=== PATIENT | male | born 1990 | race Caucasian/White ===

== ENCOUNTER 2017-03-25 11:23 | Inpatient (IN) | payer OTHER ==
[~2017-03-25] VITALS: Ht 182.9 cm; Wt 114.4 kg
[2017-03-25] MEDS ORDERED: RANI300C PO (11:55)
[2017-03-25] MEDS ORDERED: LITH300C PO (11:55)
[2017-03-25] MEDS ORDERED: LYRI150C PO (11:55)
[2017-03-25] MEDS ORDERED: KLON2TAB PO (11:55)
[2017-03-25] MEDS ORDERED: DULO30CA PO (11:55)
[2017-03-25] MEDS ORDERED: NICOTINE 21MG/24HR 1 EA TRANSDERMAL TD ONE (13:00)
[2017-03-25] MEDS ORDERED: DULO1CAP3 PO (13:20)
[2017-03-25] MEDS ORDERED: ALBU17IN INH (13:20)
[2017-03-25] MEDS ORDERED: LORATAB PO (13:20)
[2017-03-25] MEDS ORDERED: OMEP40CA2 PO (13:20)
[2017-03-25] MEDS ORDERED: DULE100A IN (13:20)
[2017-03-25] MEDS ORDERED: LITH45TASA PO (13:20)
[2017-03-25] MEDS: FAMOTIDINE 20 MG TAB PO SCH (21:00)
[2017-03-25] MEDS ORDERED: LITHIUM CARBONATE 450 MG **CR** TAB PO SCH (21:00)
[2017-03-25 22:25] VITALS: BP 143/89
[2017-03-25] MEDS ORDERED: ALBUTEROL 90 MCG/ACT 8GM HFA INHALER INH PRN (22:45)
[2017-03-26] MEDS ORDERED: MOM 30ML SUSPENSION UDC PO PRN
[2017-03-26] MEDS ORDERED: OXAZEPAM 15 MG CAP PO PRN
[2017-03-26] MEDS ORDERED: MAALOX 30 ML SUSP *UDC PO PRN
[2017-03-26] MEDS ORDERED: NICOTINE 21MG/24HR 1 EA TRANSDERMAL TD SCH (09:00)
[2017-03-26] MEDS: OLANZapine ORAL DISINTEGRATING TAB 5MG PO PRN (11:27)
[2017-03-26] MEDS: OMEPRAZOLE 20 MG CAP PO SCH (11:28)
[2017-03-26] MEDS: FAMOTIDINE 20 MG TAB PO SCH ×2 (11:29→20:11)
[2017-03-26] MEDS: LORATADINE 10 MG TAB PO SCH (11:29)
[2017-03-26] MEDS: NICOTINE 21MG/24HR 1 EA TRANSDERMAL TD SCH (11:29)
[2017-03-26] MEDS: PREGABALIN 75 MG CAP(LYRICA) PO SCH ×3 (11:29→20:10)
[2017-03-26] MEDS: SYMBICORT 160/4.5MCG INHALER 6GM INH SCH ×2 (11:29→21:04)
[2017-03-26 18:00] VITALS: BP 132/65
[2017-03-26] MEDS: LITHIUM CARBONATE 450 MG **CR** TAB PO SCH (20:11)
[2017-03-26] MEDS: ACETAMINOPHEN TAB 650MG DOSE (2X325MG) PO PRN (20:12)
[2017-03-26] MEDS ORDERED: LITHIUM CARBONATE 300 MG CAP PO SCH (21:00)
[2017-03-26] MEDS ORDERED: LITHIUM CARBONATE 450 MG **CR** TAB PO SCH (21:00)
[2017-03-26] MEDS: traZODone 50 MG TAB PO PRN (21:09)
[2017-03-26] MEDS: hydrOXYzine 25 MG TAB PO PRN (21:09)
[2017-03-27 07:05] VITALS: BP 156/78
[2017-03-27] MEDS: NICOTINE 21MG/24HR 1 EA TRANSDERMAL TD SCH (07:34)
[2017-03-27] MEDS: SYMBICORT 160/4.5MCG INHALER 6GM INH SCH ×2 (07:34→20:08)
[2017-03-27] MEDS: PREGABALIN 75 MG CAP(LYRICA) PO SCH ×3 (07:34→20:08)
[2017-03-27] MEDS: OMEPRAZOLE 20 MG CAP PO SCH (07:34)
[2017-03-27] MEDS: FAMOTIDINE 20 MG TAB PO SCH ×2 (07:34→20:08)
[2017-03-27] MEDS: LORATADINE 10 MG TAB PO SCH (07:35)
[2017-03-27] MEDS: hydrOXYzine 25 MG TAB PO PRN (07:35)
--- NOTE | 2017-03-27 10:06 | HPE ---
DATE OF ADMISSION: 03/25/2017 CHIEF COMPLAINT: Feels depressed. SUBJECTIVE: He is 26 years old. He is . He has two children, and his is expecting their third child in August. The patient lives between [facility] with family, and they have been up here in this area camping. He says he has done that every year most of his life. He and his and children, his father, and a couple of other relatives have all come. He says they arrived about a week ago. The patient is diagnosed with bipolar disorder, received the diagnosis within the last 5 years or so, sees a psychiatrist in [place], sees him regularly, last saw him a few weeks ago, is on lithium carbonate at 900 mg at night, has been on this dose for quite a while, was started on lithium more than a year ago. Says takes his medicine regularly. He has also been on Cymbalta at 60 mg twice a day, says has been on Cymbalta longer then the lithium. He was brought in as family had become increasingly concerned regarding his behavior, he started drinking, was irritable, and this happened over the course of the last couple of days per the patient, but longer per his family. He then started taking extra Klonopin, has been on that, apparently on an as needed basis as well, and was overdosing on them when intoxicated. He expressed the desire to , and to kill himself, and at one point, asked to be "killed by a helicopter repairer". The family brought him over to the hospital, he was quite agitated and angry and upset. He says that things have been going well until the last 48 hours, when he started drinking. He feels that prior to that, he was enjoying the best camping trip that he has had. Family suggests he had been taking about killing himself at least for the past week or so. They have also been concerned that he has indicated he was going to try and take his life when he came here, and therefore he been placed on a one-on-one observation. He denies the above, suggests things have not been okay only for the last 2 days or so. Says has periods when he feels down, and that soon fluctuates into feeling elated, exceedingly irritable, very energetic, with racing thoughts, only to be followed by feeling depressed again, and this tends to fluctuate within the same day, always in a few hours or so as well. He did not describe periods of an elated mood, which have extended for more than a few days at a time. He has had mood fluctuations for the better part of his adult life, says can remember such changes in his teenage years as well. He denies that he has ever thought of taking his life when he has been sober, though I am not sure if this is entirely accurate. Says has been experiencing considerable stress, particularly after was told to evacuate the house, says has been given a month, they have been there for the last 9 years, says the [facility] wants to remodel it for his family member. In addition to this, he has a young family, and his is expecting another child. Collateral information from his also indicates that he has had similar episode when she became with their second child. They for about a year possibly, and they just got back together, says they were apart because of his difficulties with alcohol. He completed an inpatient rehabilitation earlier this year, says did well, felt okay for a couple of months, no cravings, and says he then felt that he could control it if he "just had a little" and he picked it up again. No hallucinations or delusions when either manic or depressed. Says has flashbacks of difficult childhood, but did not go into details. Says he may even get nightmares, but does not remember them. Says flashbacks have been as frequent. Also suggested occasionally intrusive thoughts about the past as well. He also says he startles easily, but is not hypervigilant. PAST PSYCHIATRIC HISTORY: No history of inpatient psychiatric hospitalizations. Apparently family suggests it has come close to it though. No history of suicide attempts. He acknowledges he thinks of suicide when depressed or irritable, but has not come close to attempting it. FAMILY PSYCHIATRIC HISTORY: Says his mother has been diagnosed with bipolar disorder, has been in treatment, and generally going well. SUBSTANCE ABUSE HISTORY: As indicated above. Has had difficulties with alcohol several years, has attended at least one rehabilitation, this was earlier this year. MEDICAL HISTORY: He is treated for fibromyalgia, apparently takes Lyrica for that. MEDICATIONS: This includes: - Lyrica 150 mg three times a day - Klonopin 2 mg daily as needed for anxiety - ranitidine 300 mg twice a day - Cymbalta 60 mg twice a day - lithium carbonate 900 mg at night These are all prior to coming to hospital. He has only received lithium while in the hospital here. It should also be noted he is on albuterol which he has used as needed. ALLERGIES: PROMETHAZINE, PAROXETINE, LEXAPRO. SOCIAL HISTORY: Raised mostly by his mother, parents split when he was young, but he did not go into details, though he alluded to a difficult childhood. He and his have been together for the past 10 years. They have two children, and another one on the way. Says works [employer], and has done well with that, suggests no difficulties at work. Has been coming here to this area for summer camping, more than 20 years. Lives between [place] and [place]. Says matters at home have been good, though I am not quite sure if that is accurate. MENTAL STATUS EXAMINATION: He is unkempt, he is sitting up in bed, he is cooperative, though somewhat guarded at times as well. There is no agitation, displays mild irritability when informed that he is expected to stay in the hospital for the next couple of days. No psychomotor retardation. He is coherent. No formal thought disorder. Affect is fairly broad, quite tearful at times. He denies any suicidal thoughts or intents at present. No homicidal ideas or intents. No fluctuation of consciousness. Does not appear to be internally preoccupied. No delusional ideations elicited. He is alert, oriented to person and place, not fully to time. He initially thought it was the 02 of April, but was reoriented. Attention and concentration are good. He is able to spell the word house forwards and backwards, can recall two out of three objects after 5 minutes, and the three out of three objects after another 5, when prompted. Intellect average. Judgment is poor, as is insight. INVESTIGATIONS: These show lithium level below 0.2. It should be noted, he was initially taken to [facility], where he was examined, medically stabilized, and then transferred here. He was deemed to be medically stable when he came here. I do not have current access to any blood work or investigations done at [facility]. ASSESSMENT: Bipolar disorder, mixed episode. Unspecified anxiety disorder. Rule out posttraumatic stress disorder. Alcohol use disorder. Alcohol intoxication. Domestic difficulties, being asked to leave their residence. The patient has had mood fluctuations, has been diagnosed with bipolar disorder, and most likely meets criteria for that, in terms of mixed episodes, with periods of maria de jesus fluctuating with those of depression all within the same day, also sometimes with a few hours. This has impacted his functioning quite considerably, it has been further complicated by his misuse of alcohol, and further clouded judgment as a result, to the point where he was overdosing on Klonopin. PLAN: He is admitted to the inpatient psychiatry unit, placed on relevant precautions, including one-on-one observations, given concerns regarding his depression, his thoughts of taking his life. He also minimizes his difficulties. We also obtained further collateral information from family, and also from his outpatient psychiatrist, in terms of records as well. He is resumed on lithium carbonate at 900 mg at night, we will resume the Lyrica as well. I would not suggest resuming the Cymbalta, or placing him on any antidepressant, as that may exacerbate mood fluctuations. He has been on lamotrigine in the past, says tolerated it well but did not find it to be effective. We will monitor him for withdrawal symptoms as well. The patient will receive a medicine consult if indicated. We will also obtain a lithium level, we will consider increasing the lithium by another 150 mg, to help stabilize his mood. The possibility of considering atypical antipsychotics as mood stabilizer, in addition to the lithium, also ought to be considered. He will be discharged with followup once he is stable. I would anticipate he will stay here for the next 5-7 days. The assessment took 60 minutes.
[2017-03-27] MEDS: ACETAMINOPHEN TAB 650MG DOSE (2X325MG) PO PRN ×2 (11:52→21:20)
[2017-03-27] MEDS: OLANZapine ORAL DISINTEGRATING TAB 5MG PO PRN (13:03)
[2017-03-27 18:00] VITALS: BP 107/74
[2017-03-27] MEDS: LITHIUM CARBONATE 150 MG CAP PO SCH (20:08)
[2017-03-27] MEDS: traZODone 50 MG TAB PO PRN (20:08)
[2017-03-27] MEDS: LITHIUM CARBONATE 450 MG **CR** TAB PO SCH (20:09)
[2017-03-28 07:14] VITALS: BP 113/54
[2017-03-28] MEDS: PREGABALIN 75 MG CAP(LYRICA) PO SCH ×3 (08:23→21:55)
[2017-03-28] MEDS: OMEPRAZOLE 20 MG CAP PO SCH (08:24)
[2017-03-28] MEDS: LORATADINE 10 MG TAB PO SCH (08:24)
[2017-03-28] MEDS: NICOTINE 21MG/24HR 1 EA TRANSDERMAL TD SCH (08:24)
[2017-03-28] MEDS: SYMBICORT 160/4.5MCG INHALER 6GM INH SCH ×2 (08:24→21:56)
[2017-03-28] MEDS: FAMOTIDINE 20 MG TAB PO SCH ×2 (08:24→21:54)
--- NOTE | 2017-03-28 08:49 | IPN ---
DATE: 03/27/2017 I did see the patient. He is currently asleep. No major agitations last night. In view of this, will continue with the current care for now, and will look at increasing the lithium.
--- NOTE | 2017-03-28 09:21 | IPN ---
DATE: 03/27/2017 I went to see the patient again. He remains asleep, is snoring, and since he has been agitated the last couple of days, I will not wake him up. Will continue with current care.
[2017-03-28] MEDS: OLANZapine ORAL DISINTEGRATING TAB 5MG PO PRN ×2 (09:22→16:10)
--- NOTE | 2017-03-28 12:52 | IPN ---
DATE OF SERVICE: 03/27/2017 CHIEF COMPLAINT: Feels better. SUBJECTIVE: He is seen for followup. He was asleep when I tried seeing him on a couple of occasions earlier today. He says he has been catching up on sleep. Feels rested. When I saw him now, he was having his dinner. Says has slept well and that moods are more even-keeled. Is less irritable, less depressed. Has not been out of the room much. Has been trying to read. Concentration has improved. He has been in contact with his family, as well. Denies any cravings for alcohol. Currently, denies any suicidal thoughts or intents. MENTAL STATUS EXAMINATION: He is neater than yesterday. Still a bit unkempt. He is cooperative. He is coherent. There is no agitation. No psychomotor retardation. No abnormal movements noted. Affect is restricted in range. He currently denies any suicidal thoughts or intents. No evidence of any thoughts of harming anyone else nor of any psychosis at present. Cognition is grossly intact. Judgment and insight remain compromised. ASSESSMENT: 1. Bipolar disorder, current episode depressed. 2. Alcohol use disorder. PLAN: Continue current care and observations, and I would suggest increasing the lithium by 150 mg at night and would obtain a lithium level in 5 days. Continue with the hydroxyzine, as well, for current anxiety. I would encourage him to participate in treatment here, and I would suggest considering discontinuing a sitter tomorrow. He will be seeing the assigned psychiatrist tomorrow and the rest of the treatment team, so discharge planning can proceed, as well. The importance of his leaving when stable is emphasized. VITAL SIGNS: Blood pressure 156/78, pulse 81, temperature 99.9.
[2017-03-28 15:11] LABS: BASO # 0.1 K/mm3 (0.0-0.2); BASO % 0.7 % (0.0-1.0); EOS # 0.2 K/mm3 (0.0-0.50); EOS % 1.6 % (0.0-3.0); LARGE UNSTAINED CELL # 0.2 K/mm3 (0.0-0.4); LYMPH % 22.8 % (24.0-44.0); MEAN CORPUSCULAR HEMOGLOBIN 29.8 pg (27.0-33.0); MEAN CORPUSCULAR HGB CONC 33.7 g/dl (32.0-36.5); MEAN CORPUSCULAR VOLUME 88.3 fl (80.0-96.0); MONO # 0.6 K/mm3 (0.0-0.8); MONO % 4.7 % (0.0-5.0); NEUTROPHILS # 8.1 K/mm3 (1.8-7.7); NEUTROPHILS % 68.2 % (36.0-66.0); PLATELET COUNT, AUTOMATED 214 k/mm3 (150-450); RED CELL DISTRIBUTION WIDTH 13.2 % (11.5-14.5); WHITE BLOOD COUNT 11.9 K/mm3 (4.0-10.0)
[2017-03-28 15:28] LABS: ALBUMIN 4.5 GM/DL (3.2-5.2); ALBUMIN/GLOBULIN RATIO 1.32 (1.00-1.93); ALKALINE PHOSPHATASE 76 U/L (45-117); ALT/SGPT 32 U/L (12-78); ANION GAP 9 MEQ/L (8-16); AST/SGOT 20 U/L (15-37); BILIRUBIN,DIRECT 0.1 MG/DL (0.0-0.2); BILIRUBIN,TOTAL 0.4 MG/DL (0.2-1.0); BLOOD UREA NITROGEN 9 MG/DL (7-18); CALCIUM LEVEL 9.6 MG/DL (8.5-10.1); CARBON DIOXIDE LEVEL 24 MEQ/L (21-32); CHLORIDE LEVEL 104 MEQ/L (98-107); CREATININE FOR GFR 1.07 MG/DL (0.70-1.30); GLOMERULAR FILTRATION RATE > 60.0 (>60); GLUCOSE, FASTING 126 MG/DL (70-105); POTASSIUM SERUM 4.1 MEQ/L (3.5-5.1); SODIUM LEVEL 137 MEQ/L (136-145); TOTAL PROTEIN 7.9 GM/DL (6.4-8.2)
[2017-03-28 18:21] VITALS: BP 128/70
[2017-03-28] MEDS: LITHIUM CARBONATE 150 MG CAP PO SCH (21:55)
[2017-03-28] MEDS: LITHIUM CARBONATE 450 MG **CR** TAB PO SCH (21:55)
[2017-03-28] MEDS: traZODone 50 MG TAB PO PRN (22:31)
[2017-03-29 06:21] VITALS: BP 156/83
--- NOTE | 2017-03-29 07:26 | HPE ---
DATE OF ADMISSION: 03/25/2017 Please refer to the psychiatric history and evaluation for further details on this admission. This examination and history is intended for medical issues which may need treatment, followup, or consult on this 26-year-old male who was transferred from the [facility] after having been stabilized from taking several Klonopin and was also threatening to staff. ALLERGIES: ESCITALOPRAM, PAROXETINE, PROMETHAZINE. PRIMARY CARE PROVIDER: Goes to health clinic at [place]. SOCIAL HISTORY: He is . Ethyl alcohol (EtOH): Frequently. Smokes one pack of cigarettes per day. Recreational drug use: Marijuana. PAST MEDICAL HISTORY: Posttraumatic stress disorder (PTSD), bipolar, fibromyalgia, asthma. PAST SURGICAL HISTORY: Back surgery, upper and lower scopes. FAMILY HISTORY: Negative. Urine positive for cannabinoids. Huson was less than 0.20. HOME MEDICATIONS: - Ventolin two puffs by mouth every 4 hours as needed for shortness of breath or wheeze - Klonopin 2 mg by mouth daily as needed - Dulera 100/5 one puff by mouth twice a day - duloxetine 60 mg by mouth twice a day - Huson ER 450 mg by mouth twice a day - loratadine 10 mg by mouth daily - omeprazole 40 mg by mouth daily - Lyrica 150 mg by mouth three times a day - Zantac 300 mg by mouth twice a day REVIEW OF SYSTEMS: Ten systems review was done. Other than chronic pain from fibromyalgia, he had no complaints. PHYSICAL EXAMINATION: 26-year-old cooperative male in no acute distress. Height 74 inches, weight 113 kg, body mass index (BMI) 33.8. Blood pressure 148/78, pulse 78, respirations 16. Pupils equal and reactive to light. Extraocular movements are intact. Cornea and sclerae clear. Conjunctivae is normal. No facial asymmetry. Pharynx, tongue, gums pink and moist. Tongue is midline. NECK: Supple without lymphadenopathy. No thyromegaly. No goiter. Carotids 2+ without bruit. CHEST: Clear to auscultation without wheeze or retraction. HEART: Regular. ABDOMEN: Benign. Bowel sounds positive. GENITOURINARY/RECTAL: Not done. EXTREMITIES: Show equal strength. Full range of motion. No cyanosis, clubbing , or edema. Peripheral pulses equal and palpable bilaterally. SKIN: Warm and dry. IMPRESSION/PLAN: 1. Psychiatric plan per psychiatry. 2. History of asthma, stable. 3. Borderline blood pressure. Will monitor. May be secondary to stress. May end up needing antihypertensive. 4. Environmental allergies. Continue loratadine. 5. Gastroesophageal reflux disease (GERD). Continue omeprazole. MTDD
[2017-03-29] MEDS: FAMOTIDINE 20 MG TAB PO SCH ×2 (08:18→21:00)
[2017-03-29] MEDS: PREGABALIN 75 MG CAP(LYRICA) PO SCH ×3 (08:18→21:00)
[2017-03-29] MEDS: SYMBICORT 160/4.5MCG INHALER 6GM INH SCH ×2 (08:18→21:01)
[2017-03-29] MEDS: LORATADINE 10 MG TAB PO SCH (08:19)
[2017-03-29] MEDS: OMEPRAZOLE 20 MG CAP PO SCH (08:19)
[2017-03-29] MEDS: NICOTINE 21MG/24HR 1 EA TRANSDERMAL TD SCH (08:20)
[2017-03-29] MEDS ORDERED: buPROPion 75 MG TAB PO SCH (09:00)
--- NOTE | 2017-03-29 09:53 | IPN ---
DATE: 03/28/2017 26-year-old male who was admitted to the inpatient mental health unit after he overdosed on six Klonopin of 2 mg while being intoxicated with alcohol. SUBJECTIVE: Patient reports he feels very sorry for having been drinking a lot of beers, approximately 12 beers per day while he was camping, at least for 2 days. He says he feels extremely sad for being away from his family and because he is not going to be able to be with his tomorrow when she will be going for an ultrasound to determine the sex of the baby that she is expecting. Patient currently denies suicidal or homicidal ideations, says he feels better with the increase in lithium that was done by Dr. Arce over the weekend. Denies cravings for alcohol. He also denies auditory or visual hallucinations and denies thought delusions. OBJECTIVE: Patient is alert and oriented times three, cooperative, pleasant, disheveled and tearful. His mood and affect are sad. His speech is linear, coherent with his thoughts. Thought process is intact, thought content is coherent, worried and sad about not being present with his at the [facility] tomorrow. Denies suicidal ideation, homicidal ideation, thought disorder, thought delusions, auditory or visual hallucinations. His memory is intact, his attention and concentration are good, his judgment and insight are slowly improving. His impulse control is fair and has been fair at the unit. ASSESSMENT: Bipolar disorder, current episode depressed. Alcohol use disorder. PLAN: Will continue to monitor closely, he will continue the same medications and if he continues to be depressed, lithium will be increased another 150 mg tomorrow. Will followup. MANUEL
--- NOTE | 2017-03-29 10:21 | ECGEPIP ---
Stationary ECG Study [facility] Test Date: 2017-03-28 Pat Name: JESSI DURAN Department: Room: [place] [address] Gender: M Sales And Marketing Administrator: ROBERTO : 1990 Requested By: MALCOM Robert Order Number: [id number] Reading MD: Prasanna Ku Measurements Intervals [place] Rate: 92 P: 42 [place]: 185 QRS: 28 QRSD: 117 T: 39 QT: 356 QTc: 441 Interpretive Statements SINUS RHYTHM MODERATE INTRAVENTRICULAR CONDUCTION DELAY Comparison tracing not on file Electronically Signed On 03-29-2017 10:21:27 EDT by Prasanna Ku
[2017-03-29] MEDS: hydrOXYzine 25 MG TAB PO PRN (11:51)
[2017-03-29] MEDS: NICOTINE POLACRILEX 2 MG GUM PO PRN ×2 (14:40→18:04)
[2017-03-29] MEDS: OLANZapine ORAL DISINTEGRATING TAB 5MG PO PRN (14:40)
[2017-03-29] MEDS: risperiDONE 1 MG TAB PO SCH ×2 (15:38→21:00)
[2017-03-29 18:14] VITALS: BP 140/85
[2017-03-29] MEDS: traZODone 50 MG TAB PO PRN (21:00)
[2017-03-29] MEDS: LITHIUM CARBONATE 450 MG **CR** TAB PO SCH (21:00)
[2017-03-30 06:38] VITALS: BP 126/76
[2017-03-30] MEDS: LORATADINE 10 MG TAB PO SCH (08:15)
[2017-03-30] MEDS: risperiDONE 1 MG TAB PO SCH ×2 (08:15→20:03)
[2017-03-30] MEDS: FAMOTIDINE 20 MG TAB PO SCH ×2 (08:15→20:03)
[2017-03-30] MEDS: OMEPRAZOLE 20 MG CAP PO SCH (08:15)
[2017-03-30] MEDS: SYMBICORT 160/4.5MCG INHALER 6GM INH SCH ×2 (08:15→20:03)
[2017-03-30] MEDS: PREGABALIN 75 MG CAP(LYRICA) PO SCH ×3 (08:15→20:03)
[2017-03-30] MEDS: LITHIUM CARBONATE 300 MG **CR** TAB PO SCH (08:16)
[2017-03-30] MEDS: NICOTINE POLACRILEX 2 MG GUM PO PRN ×4 (08:19→20:03)
[2017-03-30] MEDS ORDERED: hydrOXYzine 25 MG TAB PO PRN (11:00)
--- NOTE | 2017-03-30 12:38 | IPN ---
DATE: 03/29/2017 26-year-old male who was admitted to the inpatient mental health unit after he overdosed on 6 Klonopin of 2 mg while being intoxicated with alcohol. SUBJECTIVE: Staff reported that the patient was very agitated and wanting to elope from the unit. When the patient was interviewed, he was demanding to be discharged, very irritable, edgy, saying that he felt overwhelmed by being locked in at the inpatient mental health unit because he is an outdoor person, saying that he was already stable, denying suicidal thoughts, denying thought disorder, denying cravings for alcohol and admitting cravings for nicotine. OBJECTIVE: Patient was alert, oriented times three, irritable, angry, frustrated with poor eye contact, dressed in hospital clothes, disheveled. His speech was loud, rapid, pressured. His thought process was irrational. His thought content was anxious about leaving the inpatient mental health unit. He denied suicidal ideation, denied homicidal ideation. Denied auditory or visual hallucinations, and denies thought delusions. His attention span and concentration are fair. His memory, recent and remote is intact. His judgment and insight are very poor and his impulse control is poor. ASSESSMENT: Patient is very unstable, his mood an affect are very labile. He probably has cravings to go and drink alcohol. He is not ready to be discharged exactly because he is impulsive, has low frustration tolerance. His insight and judgment are poor. The patient's aripiprazole dose was increased from 2.5 to 7.5 mg of at bedtime. His dose of lithium was modified. He has 600 mg of lithium at bedtime and 300 mg of lithium every morning. He also started receiving Risperdal 1 mg by mouth three times a day to help him control his impulses. Tomorrow he will be on 1 mg by mouth twice a day and will taper accordingly in order to leave him only with Abilify and lithium. He was started before on Wellbutrin 37.5 mg by mouth, but this medication was discontinued today because he could have gotten agitated also because of this medication. Will continue to monitor and followup closely. MTDD
[2017-03-30] MEDS ORDERED: hydrOXYzine 50 MG TAB PO PRN (13:07)
[2017-03-30 18:34] VITALS: BP 140/86
[2017-03-30] MEDS: LITHIUM CARBONATE 450 MG **CR** TAB PO SCH (20:02)
[2017-03-30] MEDS: traZODone 50 MG TAB PO PRN (21:18)
[2017-03-31] MEDS: NICOTINE POLACRILEX 2 MG GUM PO PRN ×2 (06:56→09:56)
[2017-03-31 07:04] VITALS: BP 144/85
[2017-03-31] MEDS: FAMOTIDINE 20 MG TAB PO SCH (08:34)
[2017-03-31] MEDS: risperiDONE 1 MG TAB PO SCH (08:35)
[2017-03-31] MEDS: SYMBICORT 160/4.5MCG INHALER 6GM INH SCH (08:35)
[2017-03-31] MEDS: LITHIUM CARBONATE 300 MG **CR** TAB PO SCH (08:35)
[2017-03-31] MEDS: OMEPRAZOLE 20 MG CAP PO SCH (08:35)
[2017-03-31] MEDS: LORATADINE 10 MG TAB PO SCH (08:35)
[2017-03-31] MEDS: PREGABALIN 75 MG CAP(LYRICA) PO SCH (08:35)
[2017-03-31] MEDS ORDERED: LITH300T PO (09:57)
[2017-03-31] MEDS ORDERED: TRAZO50TA PO (09:57)
[2017-03-31] MEDS ORDERED: ARIP10TAB PO (09:57)
[2017-03-31] MEDS ORDERED: HYDRO50TAB PO (09:57)
[2017-03-31] MEDS ORDERED: NICO2GUM62 PO (09:57)
--- NOTE | 2017-03-31 13:40 | MHDSPDOC ---
[facility] Discharge Summary Discharge Summary DATE OF ADMISSION: Mar 25, 2017 at 15:43 DATE OF DISCHARGE: Mar 31, 2017 at 10:15 DISCHARGE DIAGNOSES: 1. BIPOLAR DISORDER, MANIC EPISODE 2. ALCOHOL USE DISORDER REASON FOR ADMISSION: Patient was brought to the Emergency Room because he overdosed on 6 Klonopin tablets of 2 miligrams while he was camping with his family. CONSULTANTS INVOLVED: None TREATMENT AND PROGRESS ON THE UNIT : Patient has a diagnosis of Bipolar Disorder and has received treatment with different medications. some of those medications are Escitalopram, paroxetine, promethazine, Wellbutrin, Abilify and Crestline. Patient admitted to have taken 6 tablets of Klonopin, said he was drunk , he really didn't know what he was doing, neither why he did it. He denied being depressed while he overdosed. He says he is not depressed because he and his are expecting a baby and he is happy. Denied having problems with his family, including his . Patient has a history of alcohol abuse, and apparently other family members abuse it too, specifically, his father. According to staff members his had verbalized not wanting him back home, she was tired of him, but she accepted him back. Patient was very agitated and irritable until Tuesday, had low frustration for tolerance, was demanding to get out of the Hospital, said he wouldn't take his medications. His judgement and insight were very poor. At that time he was receiving Crestline 1,050 milligrams at bedtime. This dose was modified to 300 mgs PO QAM and 900 milligrams PO QHS. he was on Aripiprazole 2.5 mgs PO QHS but his medication was increased to 7.5 miligrams PO QHS and was started on Risperdal 1 mg. PO BID, because of his agitation and anger.Patient was counseled and was receptive to this Optimization Consultant, started to attend groups, participated in them, said he had benefitted from all of them, particularly [employer], and he said sharing experiences with other patients made him feel better, because now, he understood more of his disease, knew he was not alone with this illness. He was discharged on Crestline, the same dose,although distributed in a different way, 450 mgs PO BID and 3oo mgs PO QAM. Risperdal was not prescribed on discharge, instead, increased the dose for Aripiprazole to 10 mgs. PO QHS. Patient has been taking Lyrica for fibromyalgia for a long time, 150 mgs PO BID and he was discharged on this medication too. HOSPITAL COURSE: As above DISCHARGE ASSESSMENT: Patient was not in danger to self or others. he was not suicidal, not homicidal, not psychotic at the time of his discharge. MENTAL STATUS EXAMINATION ON DISCHARGE: Patient is a 26-year old male, who is alert, cooperative, pleasant, with good eye contact, dressed properly, with good hygiene. Speech is Spontaneous, fluid, coherent. Language skills are Fair. Thought processes including: Intact. Thought content: Coherent. Abstract reasoning, and computation: Fair. Description of associations: Good. Description of abnormal or psychotic thoughts: Not present at this time. Patient is not delusional and does not endorse auditory, visual or somatic hallucinations. Denies suicial or homicidal thoughts. Judgment: Improved Insight: Improved. Orientation to Oriented x 3. Recent and remote memory: Intact. Attention span and concentration: Fair. Language: Normal. Fund of knowledge: Fair. Mood: "Happy." Affect: Mood congruent, appropriate, full range. MEDICATIONS ON DISCHARGE: - Crestline 450 mgs BID for MOOD STABILIZATION AND 300 MGS. PO QAM. - Aripiprazole 10 mgs. PO QHS for mood stabilization - Atarax 100 mgs PO Q4 hours PRN for anxiety. His prescription was for 21 tablets of 50 mgs. per week, with 4 refills. -Trazodone 50 mgs. PO QHS for insomnia PLAN/FOLLOWUP ARRANGEMENTS: Medical appointment at [facility] with Dr. Sprague, Mental health appt. with Dr. Joy at [facility] and he is to follow up at the [facility]. The amount of time spent in the coordination of care for this patient was approximately 40 minutes. Vital Signs/I&Os Vital Signs Date Time Temp Pulse Resp B/P (MAP) Pulse Ox O2 Delivery O2 Flow Rate FiO2 03/31/17 07:04 97.8 87 18 144/85 (104) 03/28/17 07:14 Room Air 03/25/17 21:45 98 Medications Scheduled (Dulera 100-5 Mcg/Act) 1 Aer Aer, 1 AER IN BID, (Reported) OBTAINED FROM EXTERNAL MED HISTORY Aripiprazole (Aripiprazole) 10 Mg Tab, 10 MG PO QHS for MOOD, #7 Crestline Carbonate (Crestline Carbonate ER) 450 Mg Tabcr, 450 MG PO BID, (Reported) OBTAINED FROM EXTERNAL MED HISTORY Crestline Carbonate (Crestline Carbonate ER) 300 Mg Tab, 300 MG PO QAM for MOOD, #7 Loratadine (Loratadine Allergy Relief) 10 Mg Tab, 10 MG PO DAILY, (Reported) OBTAINED FROM EXTERNAL MED HISTORY Omeprazole (Omeprazole) 40 Mg Cap, 40 MG PO DAILY, (Reported) Pregabalin (Lyrica) 150 Mg Cap, 150 MG PO TID, (Reported) OBTAINED FROM EXTERNAL MED HISTORY Ranitidine HCl (Ranitidine HCl) 300 Mg Cap, 1 CAP PO BID, (Reported) OBTAINED FROM EXTERNAL MED HISTORY Scheduled PRN Albuterol Sulfate (Ventolin Hfa) 200 Puff/8 Gm Aers, 2 PUFF INH Q4H PRN for SHORTNESS OF BREATH, (Reported) OBTAINED FROM EXTERNAL MED HISTORY Hydroxyzine HCl (Hydroxyzine HCl) 50 Mg Tab, 100 MG PO Q4HP PRN for ANXIETY, #21 Nicotine Polacrilex (Nicorelief) 2 Mg Gum, 2 MG PO Q2HP PRN for NICOTINE WITHDRAWAL, #30 Trazodone HCl (Trazodone HCl) 50 Mg Tab, 50 MG PO QHSP PRN for INSOMNIA, #7 Allergies Coded Allergies: Escitalopram (Verified Allergy, Unknown, 03/25/17) Paroxetine (Verified Allergy, Unknown, 03/25/17) Promethazine (Verified Allergy, Unknown, 03/25/17) MALCOM GREENBERG MD Mar 31, 2017 13:40
--- NOTE | 2017-03-31 16:39 | MHIPN ---
DATE: 03/30/2017 A 26-year-old male with a history of: 1. Bipolar disorder, current episode manic. 2. Alcohol use disorder. SUBJECTIVE: The patient reports feeling better, he has had a good experience attending groups, sharing experiences and coping skills with other patients. He denies suicidal ideation, homicidal ideation and says he is okay if he stays until 04/01/2017. He says he knows his is expecting a baby girl and that makes him feel very happy. He is hoping being discharged to reunite again with his family. OBJECTIVE: The patient is alert, oriented times three, cooperative, pleasant. He is not irritable or angry as he was yesterday. His speech and demeanor have changed. He is calm, and he has gained insight into his illness and what he needs to do in order to improve. His thought process is more rational, and his thought content is about the baby that his is expecting at this time and that it is going to be a girl and how he wants to raise her up. He denied homicidal or suicidal ideation, denied thought delusions, denied manic symptoms, denied auditory or visual hallucinations. His attention span and concentration are fair, his memory is good, his judgment and insight have improved since yesterday. His impulse control is improved, too. ASSESSMENT: The patient has improved, he is calm and composed, says he will followup as an outpatient because he wants to be able to keep his family and be a good father and a good . The patient is stable at this time, and if he continues stable tomorrow, 03/31/2017, he will be discharged home to family members. But we need to contact his in order to make sure that she still wants him at home. Arrangements will be done tomorrow for him to be discharged either tomorrow, , or 04/01/2017. The patient will continue on the same medications. Will monitor and followup closely.
[2017-03-31] MEDS ORDERED: ARIPiprazole 10 MG TAB PO SCH (21:00)
== END 2017-03-31 10:15 | disposition home or self-care (01) | DRG 753 ==
LOC: M ED 11:23 → M ED INP 15:43 → M PSY 22:25
PROVIDERS: ADMIT Psychiatry & Neurology Psychiatry; ATTEND Psychiatry & Neurology Psychiatry
DX: F31.9 Bipolar disorder, unspecified (principal); F41.8 Other specified anxiety disorders; F10.129 Alcohol abuse with intoxication, unspecified; F43.10 Post-traumatic stress disorder, unspecified; Z81.8 Family history of other mental and behavioral disorders; Z79.899 Other long term (current) drug therapy; F17.210 Nicotine dependence, cigarettes, uncomplicated; M79.7 Fibromyalgia; J45.909 Unspecified asthma, uncomplicated; K21.9 Gastro-esophageal reflux disease without esophagitis; Z88.8 Allergy status to other drugs, medicaments and biological substances